=== PATIENT | female | born 1980 | race Caucasian/White ===

== ENCOUNTER 2022-10-17 14:12 | Emergency (ER) | payer BC ==
[2022-10-17 14:47] LABS: HCG UR QUAL NEGATIVE
[2022-10-17 14:49] LABS: BASOPHILS # (AUTO) 0.1 10^3/uL (0.0-0.1); BASOPHILS % (AUTO) 0.8 %; EOSINOPHILS # (AUTO) 0.1 10^3/uL (0.0-0.7); EOSINOPHILS % (AUTO) 1.9 %; HCT - HEMATOCRIT 36.2 % (37.0-47.0); HGB - HEMOGLOBIN 11.9 g/dL (12.0-16.0); MEAN CORPUSCULAR HEMOGLOBIN 28.7 pg (27.0-31.0); MEAN CORPUSCULAR HGB CONC 32.9 g/dL (32.0-36.0); MEAN CORPUSCULAR VOLUME 87.4 fL (81.0-99.0); MEAN PLATELET VOLUME 9.6 fL (7.9-10.8); MONOCYTES # (AUTO) 0.5 10^3/uL (0.0-1.0); MONOCYTES % (AUTO) 6.7 %; NEUTROPHILS # (AUTO) 4.7 10^3/uL (1.5-6.6); NEUTROPHILS % (AUTO) 63.3 %; PLT - PLATELET COUNT 263 10^3/uL (130-450); RED BLOOD COUNT 4.14 10^6/uL (4.20-5.40); RED CELL DISTRIBUTION WIDTH 13.2 % (12.0-15.0); WHITE BLOOD COUNT 7.4 x10^3/uL (4.8-10.8)
[2022-10-17 14:51] LABS: GLUCOSE, URINE (UA) NEGATIVE (NEGATIVE); KETONES,URINE (UA) 15 mg/dL (NEGATIVE); LEUKOCYTE ESTERASE, URINE TRACE (NEGATIVE); NITRITE,URINE POSITIVE (NEGATIVE); OCCULT BLOOD,URINE LARGE (NEGATIVE); PH,URINE 6.5 PH (5.0-7.5); PROTEIN,URINE >=300 mg/dL (NEGATIVE); UROBILINOGEN,URINE 2 E.U./dL (NORMAL)
[2022-10-17 14:54] LABS: CLARITY,URINE CLOUDY (CLEAR)
[2022-10-17 15:02] LABS: BACTERIA,URINE Few /HPF (None Seen); BILIRUBIN,URINE MODERATE (NEGATIVE); ICTOTEST,URINE POSITIVE; RBC,URINE TNTC /HPF (0-5); SQUAMOUS EPITHELIAL CELL,UR FEW Squamous (<= Few)
[2022-10-17 15:02] LABS: ALBUMIN 4.4 g/dL (3.2-5.5); ALBUMIN/GLOBULIN RATIO 1.6 (1.0-2.2); BILIRUBIN,TOTAL 0.6 mg/dL (0.2-1.0); POTASSIUM 4.2 mmol/L (3.5-5.0); TOTAL PROTEIN 7.2 g/dL (6.7-8.2)
[2022-10-17] MEDS ORDERED: cefTRIAXone 1 GM VIAL IM STA (16:38)
[2022-10-17] MEDS ORDERED: LIDOCAINE 1% 2 ML VIAL MC ONE (16:38)
[2022-10-17] MEDS ORDERED: PHENAZOPYRIDINE 100 MG TABLET PO STA (16:40)
--- NOTE | 2022-10-17 16:43 | ED Physician Documentation ---
History of Present Illness - Stated complaint Stated Complaint: FEMALE - Chief complaint Chief Complaint: Abd Pain - Additonal information Additional information: 42-year-old female presents to the emergency department for evaluation of i ncreasing urinary urgency and frequency that began a little more than a week ago. Initially improved with [id number] Pyridium but then returned. She did see her provider at the [facility] who started her on Bactrim. She is taken 5 doses of it and still has worsening urinary symptoms. No fevers. She has vomited once. She reports that she constantly has to urinate. No history of recurrent urinary tract infections. No history of pyelonephritis. 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 Non- smoker. Review of Systems Constitutional: denies: Fever, Chills Throat: reports: Reviewed and negative Cardiac: reports: Reviewed and negative Respiratory: reports: Reviewed and negative GI: reports: Vomiting. denies: Abdominal Pain, Constipation, Diarrhea : reports: Dysuria, Frequency. denies: Discharge PD PAST MEDICAL HISTORY - Present Medications Home Medications: Ambulatory Orders Medication Instructions Recorded Confirmed Cefpodoxime Proxetil [Vantin] 100 mg PO Q12H #14 tablet 10/17/22 Phenazopyridine HCl [Pyridium] 200 mg PO TID PRN #6 tablet 10/17/22 - Allergies Allergies/Adverse Reactions: Allergies Allergy/AdvReac Type Severity Reaction Status Date / Time acetaminophen [From Vicodin] AdvReac Emesis Verified 10/17/22 14:32 hydrocodone [From Vicodin] AdvReac Emesis Verified 10/17/22 14:32 PD ED PE NORMAL - General General: Alert and oriented X 3, No acute distress (Acting as though she needs to urinate urgently) - HEENT HEENT: Atraumatic, Moist mucous membranes - Cardiac Cardiac: RRR, No murmur - Respiratory Respiratory: No respiratory distress - Abdomen Abdomen: Normal bowel sounds, Soft. No: Non tender (Mild suprapubic tenderness. No flank or CVA tenderness elicited. Abdomen otherwise benign. 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 intact Eye Opening: Spontaneous Motor: Obeys Commands Verbal: Oriented GCS Score: 15 Results - Vitals Vitals: Vital Signs - 24 hr 10/17/22 14:32 Temperature 37.2 C Heart Rate 69 Respiratory 18 Rate Blood Pressure 152/100 H O2 Saturation 97 Oxygen O2 Source Room air - Labs Labs: Laboratory Tests 10/17/22 10/17/22 10/17/22 14:30 14:42 14:42 WBC 7.4 RBC 4.14 L Hgb 11.9 L Hct 36.2 L MCV 87.4 MCH 28.7 MCHC 32.9 RDW 13.2 Plt Count 263 MPV 9.6 Neut # (Auto) 4.7 Lymph # (Auto) 2.0 [place] # (Auto) 0.5 Eos # (Auto) 0.1 Baso # (Auto) 0.1 Absolute Nucleated RBC 0.00 Nucleated RBC % 0.0 Sodium 137 Potassium 4.2 Chloride 109 Carbon Dioxide 23 Anion Gap 5.0 L BUN 16 Creatinine 1.0 Estimated GFR (MDRD) 61 L Glucose 90 Calcium 9.0 Total Bilirubin 0.6 AST 18 ALT 17 Alkaline Phosphatase 60 Total Protein 7.2 Albumin 4.4 Globulin 2.8 Albumin/Globulin Ratio 1.6 Lipase 47 Urine Color BROWN Urine Clarity CLOUDY Urine pH 6.5 Ur Specific [place] >=1.030 H Urine Protein >=300 H Urine Glucose (UA) NEGATIVE Urine Ketones 15 H Urine Occult Blood LARGE H Urine Nitrite POSITIVE H Urine Bilirubin MODERATE H Urine Urobilinogen 2 H Ur Leukocyte Esterase TRACE H Urine RBC TNTC H Urine WBC 4-5 Ur Squamous Epith Cells FEW Squamous Urine Bacteria Few Ur Microscopic Review INDICATED Urine Culture Comments INDICATED Urine HCG, Qual NEGATIVE PD Medical Decision Making - ED course Complexity details: reviewed results, considered differential, d/w patient ED course: 42-year-old female presents to the emergency department for evaluation of 1 week urinary urgency dysuria and frequency. She has taken 5 doses of Bactrim without relief of symptoms. Clinically on exam she appears well. No fevers. We did obtain a CBC and electrolytes in the emergency department. There is no worrisome leukocytosis or anemia. Electrolytes showed no worrisome abnormality. Specifically she has preserved renal and liver function. Her urinalysis however is consistent with acute cystitis. I have lower suspicion for a sending infection or pyelonephritis given lack of fevers or leukocytosis. I did not elicit any flank or CVA pain on exam. Though she is currently on Bactrim, there is a locally high resistance rate to E. coli with the use of Bactrim in uncomplicated cystitis. Therefore we will tr ansition her to a cephalosporin. Given the holiday and the inability to get prescriptions filled appropriately tonight she was given an injection of ceftriaxone here in the emergency department and a handwritten prescription for Vantin was dispensed to the patient. We discussed usual return precautions as well as routine care of simple uncomplicated cystitis Departure - Departure Disposition: Home, Self Care Clinical Impression: Acute cystitis Qualifiers: Hematuria presence: without hematuria Qualified Code(s): N30.00 - Acute cystitis without hematuria Condition: Stable Record reviewed to determine appropriate education?: Yes Instructions: ED UTI Cystitis Female Prescriptions: Phenazopyridine HCl [Pyridium] 200 mg PO TID PRN #6 tablet PRN Reason: dysuria Cefpodoxime Proxetil [Vantin] 100 mg PO Q12H #14 tablet Comments: Stephanie you were seen today because for about the last week you have been having increasing symptoms of urinary tract infection which include urgency and frequency. Here in the emergency department your CBC looks good without findings to suggest an elevated white count. Your electrolytes are normal. Your kidney and liver function is normal. Your urine is grossly suggestive of infection. Because the Bactrim has not worked I would like to change the class of antibiotic you are taking. You were given an injection of ceftriaxone here in the emergency department and I am giving you a prescription for medication called Vantin. You will take this twice daily for the next week. I have also given you a dose of medication called Pyridium. This is at a higher dose than is available [id number] and should help with the bladder spasm, urgency and frequency. I encourage you to drink plenty of water. If at any point you find that your urinary symptoms or not improving over the next 24 to 48 hours, you develop fevers, have uncontrolled vomiting you should then report return to any emergency department for repeat evaluation
[2022-10-17 16:56] VITALS: BP 146/115
== END 2022-10-17 16:55 | disposition home or self-care (01) ==
LOC: ED 14:12
DX: N30.00 Acute cystitis without hematuria (principal)
CPT/HCPCS: 36415; 80053; 81001; 81025; 83690; 85025; 87086; 96372; 99282; 99283; A9270; 81003